=== PATIENT | female | born 1965 | race Two or more races ===

== ENCOUNTER 2017-02-19 18:42 | Emergency (ER) | payer SELFPAY | END 2017-02-19 19:36 | disposition home or self-care (01) | LOC: ED 18:42 | DX: H66.41 Suppurative otitis media, unspecified, right ear (principal); R05 Cough; R03.0 Elevated blood-pressure reading, without diagnosis of hypertension; I10 Essential (primary) hypertension; E11.9 Type 2 diabetes mellitus without complications; Z79.84 Long term (current) use of oral hypoglycemic drugs ==